=== PATIENT | male | born 1980 | race Caucasian/White ===

== ENCOUNTER 2017-12-08 18:19 | Emergency (ER) | payer OTHER ==
[~2017-12-08] VITALS: Ht 182.9 cm; Wt 107.0 kg
[2017-12-08] MEDS ORDERED: BACI1OIN6 TD (18:50)
[2017-12-08] MEDS ORDERED: PROM25SU34 RC (18:50)
[2017-12-08] MEDS ORDERED: LIDOCAINE VISCOUS (18:50)
[2017-12-08] MEDS ORDERED: ACET325T14 PO (18:50)
[2017-12-08] MEDS ORDERED: CALC500T PO (18:50)
[2017-12-08] MEDS ORDERED: RANI150T4 PO (18:50)
[2017-12-08] MEDS ORDERED: MAGN2400 PO (18:50)
[2017-12-08] MEDS ORDERED: ONDANSETRON ODT 4 MG PO ONE (19:00)
[2017-12-08 19:16] LABS: BASOPHILS % (AUTO) 0 % (0-1); EOSINOPHILS # (AUTO) 0.14 x10^3/uL (0-0.4); EOSINOPHILS % (AUTO) 1 % (1-7); LYMPHOCYTES # (AUTO) 1.16 x10^3/uL (1-3.4); LYMPHOCYTES % (AUTO) 10 % (22-44); MD NO; MEAN CORPUSCULAR HEMOGLOBIN 28.8 pg (27.5-34.5); MEAN CORPUSCULAR HGB CONC 33.8 g/dL (33.2-36.2); MEAN CORPUSCULAR VOLUME 85.3 fL (81-97); MEAN PLATELET VOLUME 8.3 fL (7.4-10.4); MONOCYTES # (AUTO) 0.44 x10^3/uL (0.2-0.8); MONOCYTES % (AUTO) 4 % (2-9); NEUTROPHILS # (AUTO) 10.23 x10^3/uL (1.8-6.8); NEUTROPHILS % (AUTO) 86 % (42-75); PLATELET COUNT 297 x10^3/uL (130-400); RED CELL DISTRIBUTION WIDTH 13.7 % (9.4-14.8)
[2017-12-08 19:26] LABS: ALANINE AMINOTRANSFERASE 60 U/L (12-78); ALBUMIN 3.6 g/dL (3.4-5.0); ANION GAP 6 mmol/L (5-15); CALCIUM 8.4 mg/dL (8.5-10.1); CHLORIDE 106 mmol/L (98-107); CREATININE 1.26 mg/dL (0.7-1.3)
[2017-12-08 19:28] LABS: ALKALINE PHOSPHATASE 95 U/L (45-117); BILIRUBIN,TOTAL 0.4 mg/dL (0.2-1.0); TOTAL PROTEIN 7.1 g/dL (6.4-8.2)
[2017-12-08] MEDS ORDERED: ONDANSETRON ODT 4 MG ONE (19:29)
[2017-12-08] MEDS ORDERED: MORPHINE SULFATE 4 MG/ML, 1ML ONE ×2 (19:30→20:15)
[2017-12-08] MEDS: MORPHINE SULFATE 4 MG/ML, 1ML IVPush PRN ×2 (19:32→20:16)
[2017-12-08 20:08] LABS: MICROSCOPIC NOT IND
[2017-12-08 20:18] LABS: CULTURE INDICATED? NO
[2017-12-08] MEDS ORDERED: OMNIPAQUE 350 MG/ML, 100ML BOTTLE ONE (20:32)
[2017-12-09 00:50] VITALS: BP 137/86
== END 2017-12-08 21:33 | disposition home or self-care (01) ==
LOC: ED 20:21
DX: R10.84 Generalized abdominal pain (principal)
CPT/HCPCS: 36415; 74177; 80053; 81003; 83690; 85025; 96374; 96376; 99285; Q0162; Q9967